=== PATIENT | male | born 1990 ===

== ENCOUNTER 2017-05-30 10:15 | Emergency (ER) | payer OTHER ==
[2017-05-30 11:33] LABS: BASOPHILS % (AUTO) 2 % (0-3); EOSINOPHILS % (AUTO) 4 % (0-9); HEMATOCRIT 45 % (39-53); MEAN CORPUSCULAR VOLUME 88 fL (80-100); MONOCYTES % (AUTO) 10.8 % (0-12); NEUTROPHILS % (AUTO) 59.9 % (37-80)
[2017-05-30 11:45] LABS: ALBUMIN 3.4 gm/dl (3.4-5.0); ALT 92 IU/L (14-63); CALCIUM 8.6 mg/dl (8.5-10.1); GLOM FILT RATE 84 mL/min (>60); POTASSIUM 3.8 mMol/L (3.5-5.1); SALICYLATE < 2.8 mg/dl (2.8-30.0); SODIUM 135 mMol/L (136-145)
[2017-05-30 11:47] LABS: AMPHETAMINES POSITIVE (NEGATIVE); METHADONE NEGATIVE (NEGATIVE); OPIATES(OP13) NEGATIVE (NEGATIVE); OXYCODONE(OXY) NEGATIVE (NEGATIVE); PROPOXYPHENE(PPX) NEGATIVE (NEGATIVE); TRICYCLIC ANTIDEPRESSANTS NEGATIVE (NEGATIVE)
[2017-05-30] MEDS ORDERED: METOPROLOL TARTRATE 25 MG TAB PO ONE (12:54)
[2017-05-30] MEDS ORDERED: ASPIRIN 81 MG CHEWABLE CTB PO ONE (12:54)
[2017-05-30] MEDS ORDERED: SODIUM CHLORIDE 0.9% 1000ML 1,000 ML IV SCH (13:00)
[2017-05-30] MEDS ORDERED: ASPIRIN 81 MG CHEWABLE CTB ONE (13:04)
[2017-05-30] MEDS ORDERED: METOPROLOL TARTRATE 25 MG TAB ONE (13:04)
[2017-05-30] MEDS ORDERED: ENOXAPARIN 80 MG SOL SC ONE ×2 (13:10→13:21)
[2017-05-30 13:12] VITALS: TEMP 98.1
[2017-05-30 13:43] VITALS: BP 121/60; PULSE 70; RESP 23; O2SAT 94
== END 2017-05-30 14:06 | disposition short-term general hospital (02) ==
LOC: ED 10:15
DX: I21.3 ST elevation (STEMI) myocardial infarction of unspecified site (principal); F11.10 Opioid abuse, uncomplicated; F15.10 Other stimulant abuse, uncomplicated
CPT/HCPCS: 36415; 71045; 80053; 80305; 80307; 84484; 85025; 93005; 99285; J1650; A9270-GY

== ENCOUNTER 2017-11-22 16:47 | Emergency (ER) | payer OTHER ==
[2017-11-22] MEDS ORDERED: KETOROLAC TROMETHAMINE 30 MG/ML SOL IM ONE (17:16)
[2017-11-22] MEDS ORDERED: KETOROLAC TROMETHAMINE 30 MG/ML SOL ONE (17:19)
[2017-11-22 17:45] VITALS: RESP 20; TEMP 98.3
[2017-11-22 18:13] VITALS: BP 132/84; PULSE 70; O2SAT 98
== END 2017-11-22 18:10 | disposition home or self-care (01) ==
LOC: ED 16:47
DX: R07.89 Other chest pain (principal)
CPT/HCPCS: 96372; 99283; 99284; J1885

== ENCOUNTER 2017-12-18 13:49 | Emergency (ER) | payer OTHER ==
[2017-12-18 14:07] VITALS: RESP 20; TEMP 97.1; O2SAT 99
[2017-12-18 14:20] VITALS: BP 122/82; PULSE 81
== END 2017-12-18 14:24 | disposition home or self-care (01) ==
LOC: ED 13:49
DX: T78.40XA Allergy, unspecified, initial encounter (principal)
CPT/HCPCS: 99282

== ENCOUNTER 2018-06-15 10:26 | Emergency (ER) | payer BC, OTHER ==
[2018-06-15 10:49] VITALS: BP 122/85; PULSE 91; RESP 18; TEMP 97.2; O2SAT 100
[2018-06-15 11:06] LABS: APPEARANCE,URINE Clear; BILIRUBIN,URINE NEGATIVE (NEGATIVE); COLOR,URINE Yellow; GLUCOSE, URINE (UA) NEGATIVE (NEGATIVE); KETONES,URINE NEGATIVE (NEGATIVE); LEUKOCYTE ESTERASE ,URINE NEGATIVE (NEGATIVE); NITRATE,URINE NEGATIVE (NEGATIVE); OCCULT BLOOD,URINE NEGATIVE (NEG-TRACE); PH,URINE 6.5
[2018-06-15 11:13] LABS: BASOPHILS % (AUTO) 0 % (0-3); EOSINOPHILS % (AUTO) 0 % (0-9); HEMATOCRIT 49 % (39-53); HEMOGLOBIN 16.1 gm/dl (13.5-17.7); LYMPHOCYTES % (AUTO) 11.5 % (10-50); MEAN CORPUSCULAR HEMOGLOBIN 30.1 pg (27.0-32.0); MEAN CORPUSCULAR HGB CONC 32.6 gm/dl (32.0-36.0); MEAN CORPUSCULAR VOLUME 92 fL (80-100); MONOCYTES % (AUTO) 5.6 % (0-12); NEUTROPHILS % (AUTO) 82.1 % (37-80)
[2018-06-15 11:22] LABS: AMPHETAMINES NEGATIVE (NEGATIVE); BARBITUATES NEGATIVE (NEGATIVE); BENZODIAZEPINES NEGATIVE (NEGATIVE); CANNABINOL(THC) NEGATIVE (NEGATIVE); COCAINE(COC) NEGATIVE (NEGATIVE); METHADONE NEGATIVE (NEGATIVE); OPIATES(OPI) NEGATIVE (NEGATIVE); PROPOXYPHENE(PPX) NEGATIVE (NEGATIVE); TRICYCLIC ANTIDEPRESSANTS NEGATIVE (NEGATIVE)
[2018-06-15 11:23] LABS: METHAMPHETAMINES NEGATIVE (NEGATIVE); OXYCODONE(OXY) NEGATIVE (NEGATIVE)
[2018-06-15 11:30] LABS: INFLUENZA A NEGATIVE (NEGATIVE); INFLUENZA B POSITIVE (NEGATIVE)
[2018-06-15 11:32] LABS: ALBUMIN 3.8 gm/dl (3.4-5.0); BILIRUBIN,TOTAL 0.4 mg/dl (0.2-1.0); CARBON DIOXIDE 28.3 mEq/L (21-32); CREATININE 0.89 mg/dl (0.80-1.30); TOTAL PROTEIN 7.2 gm/dl (6.4-8.2)
[2018-06-15] MEDS ORDERED: OSELTAMIVIR PHOSPHATE 75 MG CAP PO ONE ×2 (11:33)
[2018-06-15 11:40] LABS: EPITHELIAL CELLS 0-1 (SQUAMOUS); RBC,URINE 0-1 (0-3AV/HPF); WBC,URINE 0-2 (0-5AV/HPF)
[2018-06-15 11:41] LABS: BACTERIA TRACE (< 1+); CRYSTALS 2+ AMORPHOUS URATES (0-3 AVE/HPF)
== END 2018-06-15 11:58 ==
LOC: SUPCPDRO 10:26 → ED 10:26
DX: Z02.89 Encounter for other administrative examinations (principal); J11.1 Influenza due to unidentified influenza virus with other respiratory manifestations
CPT/HCPCS: 36415; 80053; 80305; 81001; 85025; 87804; 99282; A9270-GY